=== PATIENT | male | born 1955 | race Caucasian/White ===

== ENCOUNTER 2018-01-24 20:13 | Emergency (ER) | payer OTHER, MEDICARE, SELFPAY ==
[2018-01-24 20:19] VITALS: BP 173/88; PULSE 69; RESP 14; TEMP 36.6; O2SAT 96
--- NOTE | 2018-01-24 20:21 | DI.RAD.S_ITS ---
PROCEDURE: XR FINGER LT MIN 2V INDICATIONS: crush injury distal 2nd digit TECHNIQUE: AP hand, 2 views of the left second finger(s) acquired. COMPARISON: None. FINDINGS: Bones: There is a comminuted, displaced fracture of the distal aspect of the distal phalanx of the left second digit. Soft tissues: Soft tissue laceration is present at the distal aspect of the left second digit. IMPRESSION: Laceration/fracture of the left second digit. Dictated by: Isabel Toney M.D. on 01/24/2018 at 20:36 Approved by: Isabel Toney M.D. on 01/24/2018 at 20:37
--- NOTE | 2018-01-24 20:51 | ED_ITS ---
HPI - Extremity Injury (Upper) General Chief Complaint: Extremity Injury, Upper Stated Complaint: LT INDEX FINGER SMASH, CUT Time Seen by Provider: 01/24/18 20:50 Source: patient Mode of arrival: ambulatory Limitations: no limitations History of Present Illness HPI narrative: Patient is a 62-year-old male here for evaluation of a left index finger injury. He stated that just prior to arrival he was rolling a log onto a log splitter when he got his finger caught between the log and another object. Immediately had pain. Bleeding from his index finger. Rapid finger in gauze and came to the emergency department Related Data Previous Rx's Medication Instructions Recorded cephalexin [Keflex] 500 mg PO Q12H 10 Days #20 cap 01/24/18 hydrocodone-acetaminophen [Casper] 1 tab PO Q4-6H PRN #7 tab 01/24/18 Allergies Allergy/AdvReac Type Severity Reaction Status Date / Time No Known Drug Allergies Allergy Verified 01/24/18 23:01 Review of Systems Musculoskeletal Comments: Left index finger pain Integumentary/Breasts Comments: Bleeding from the tip of the left index finger Hematologic/Lymphatic Denies easy bleeding and Denies easy bruising [facility] Medical History Hypertension (Acute) Surgical History No pertinent past surgical history (Acute) Exam Initial Vital Signs Initial Vital Signs: Vital Signs Temperature 97.8 F 01/24/18 20:19 Pulse Rate 69 01/24/18 20:19 Respiratory Rate 14 01/24/18 20:19 Blood Pressure 173/88 H 01/24/18 20:19 Pulse Oximetry 96 01/24/18 20:19 Const General: cooperative, healthy appearing, comfortable, well developed, well groomed and No acute distress Orientation: alert, awake and oriented x3 Cardio Pulses: radial pulses present on the left Skin Other: Patient with a 2 cm laceration at the nail bed of the left index finger. Neuro Other: Sensation intact to light touch left index finger Extrem Other: Patient with an obvious deformity to the tip of the left index finger. Was cut to this area. The base of the nail was exposed at the level of the cut. Procedures Laceration Repair Laceration 1: Site: hand Side (If applicable): left Size (cm): 2 Description: irregular Depth: simple, single layer Local Anesthetic: lidocaine 1% Amount of anesthesia used (mL): 10 Pre-repair: wound explored and irrigated extensively Skin layer closed with: other Size (cm): 6-0 Number of sutures: 8 Technique: simple, interrupted Orthopedic Splinting/Casting Injury #1: Side: left Upper Extremity Injury Location: finger Upper Extremity Immobilizer: aluminum form splint Course Orders Ordered: ED Orders 01/24/18 20:21 XR finger LT min 2V Stat Discontinued Medications Hydrocodone Bitart/Acetaminophen (Vicodin Prepack) 1 bottle MISC SEEINSTR ONE Stop: 01/24/18 23:29 Last Admin: 01/24/18 23:36 Dose: 1 bottle Diphtheria/Tetanus/Acell Pertussis (Adacel) 0.5 ml IM .ONCE ONE Stop: 01/24/18 21:12 Last Admin: 01/24/18 21:34 Dose: 0.5 ml Cefazolin Sodium/Dextrose (Ancef) 2 gm in 100 mls @ 200 mls/hr IV NOW ONE Stop: 01/24/18 21:40 Last Infusion: 01/24/18 22:18 Dose: 0 mls/hr Admin: 01/24/18 21:39 Dose: 200 mls/hr Vital Signs - 8 hr 01/24/18 20:19 01/24/18 23:25 Temperature 97.8 F Pulse Rate 69 64 Respiratory Rate 14 20 Blood Pressure 173/88 H 159/102 H Pulse Oximetry 96 96 MDM - Extremity Injury (Upper) Imaging Data Hand x-ray: Radiologist's impression: [address] [address] XRay Report Signed Patient: EZEQUIEL HASKINS JMR#: [id number] : 6Acct:[id number] Age/Sex: 62 / MDate of Service: 01/24/18 Loc: ED Accession Number: [id number] Procedure: XR finger LT min 2V Ordering Provider: Kae Orta PROCEDURE: XR FINGER LT MIN 2V INDICATIONS: crush injury distal 2nd digit TECHNIQUE: AP hand, 2 views of the left second finger(s) acquired. COMPARISON: None. FINDINGS: Bones: There is a comminuted, displaced fracture of the distal aspect of the distal phalanx of the left second digit. Soft tissues: Soft tissue laceration is present at the distal aspect of the left second digit. IMPRESSION: Laceration/fracture of the left second digit. Dictated by: Isabel Toney M.D. on 01/24/2018 at 20:36 Approved by: Isabel Toney M.D. on 01/24/2018 at 20:37 [facility] Narrative Medical decision making narrative: Patient's tetanus was updated. He was given 2 g of Ancef here in the ER. Does have a open left distal phalanx fracture of the index finger. A finger block was performed with lidocaine and Marcaine. The wound was extensively irrigated. The left fingernail was removed and the nail bed underneath was sutured with chromic. Other portions of the laceration outside of the nail bed was also closed with chromic. The nail was returned to keep the nail bed open. Patient was informed that there is the potential that his fingernail will not grow back looking ?normal? he was placed in a finger splint. He was given the phone number for the local orthopedic group. He was given care instructions. Will also send home with oral pain medication and also antibiotics. He was given return precautions. He expressed understanding and agreement with plan. Discharge Plan Departure Patient Disposition: Home Clinical Impression: Finger fracture, left Discharge Date/Time: 01/24/18 23:37 Interventions: ED Discharge Assessment Last Done: 01/24/18 23:25 Instructions: DI for Finger Fracture, How to Take Care of Your Splint Activity Restrictions/Additional Instructions: Take care of the splint like we discussed. The stitches in your finger do need to be removed in approximately 7-10 days. You can contact the [facility] group at [phone] for a follow-up. You can also contact your primary care doctor for referral to see Orthopedics in [place]. Take the antibiotics as directed. Return to the emergency department for any new or worsening symptoms Prescriptions: New cephalexin [Keflex] 500 mg capsule 500 mg PO Q12H 10 Days Qty: 20 RF: 0 hydrocodone-acetaminophen [Casper] 5-325 mg tablet 1 tab PO Q4-6H PRN (Reason: pain) Qty: 7 RF: 0
[2018-01-24] MEDS: TET,DIPH,PERTUSS(ACELL),VAC/PF 0.5 ML SYRINGE IM (21:34)
[2018-01-24] MEDS: CEFAZOLIN 2 GM/100 ML FROZ.PIGGY IV (21:39)
[2018-01-24 23:25] VITALS: BP 159/102; PULSE 64; RESP 20; O2SAT 96
--- NOTE | 2018-01-24 23:26 | PC.NURSE ---
Chastity RN wrapped pts finger with xeroform, telfa dressing, tube gauze, and finger splint per provider. Pt CMS intact. pt appears in no acute distress at this time, pt tolerated procedure.
[2018-01-24] MEDS: HYDROCODONE/ACET 5/325 PREPACK 1 BOTTLE MISC (23:36)
== END 2018-01-24 23:37 | disposition home or self-care (01) ==
PROVIDERS: Emergency Provider Emergency Medicine
DX: S62.601B Fracture of unspecified phalanx of left index finger, initial encounter for open fracture (principal); W23.0XXA Caught, crushed, jammed, or pinched between moving objects, initial encounter
CPT/HCPCS: 12001; 73140; 90471; 96365; 99283; 99284; 90715; J0690